=== PATIENT | female | born 1995 | race Caucasian/White ===

== ENCOUNTER 2016-10-08 09:16 | Emergency (ER) | payer MEDICAID ==
[2016-10-08 09:27] VITALS: BP 125/77; PULSE 82; TEMP 97.9; O2SAT 100
[2016-10-08 09:34] VITALS: RESP 16
--- NOTE | 2016-10-08 09:56 | ED PDOC ---
HPI: CCC, URI, Sore Throat Time Seen by Provider: 10/08/16 09:33 Chief Complaint (Nursing): ENT Problem History Per: Patient (states 2 days of sore throat, cough and nasal congestion associated with headaches. Also c/o pain right side of neck. ) History/Exam Limitations: no limitations Have you had recent travel within the past 21 days to any of the following countries: [place], [place], [place] or [place]?: No Onset/Duration Of Symptoms: Days (2) Current Symptoms Are (Timing): Still Present Location Of Pain: Throat, Headache Sick Contacts (Context): None Associated Symptoms: Chills, Sore Throat, Cough, Nasal Congestion. denies: Sinus Drainage, Myalgias, Vomiting, Diarrhea Past Medical History Reviewed: Historical Data, Nursing Documentation, Vital Signs Vital Signs: Last Vital Signs Temp 97.9 F 10/08/16 09:32 Pulse 82 10/08/16 09:32 Resp 16 10/08/16 09:32 BP 125/77 10/08/16 09:32 Pulse Ox 100 10/08/16 09:58 - Medical History PMH: Anemia Denies: HIV, Chronic Kidney Disease - Surgical History Surgical History: Cholecystectomy, (x2) - Family History Family History: States: Unknown Family Hx - Living Arrangements Living Arrangements: With Family - Social History Current smoker - smoking cessation education provided: No - Home Medications Home Medications: Ambulatory Orders Medication Instructions Recorded Ciprofloxacin 500 mg PO BID #10 ml 07/31/14 Ferrous Sulfate 325 mg PO BID #30 tab 07/31/14 Ciprofloxacin/Ciprofloxa HCl 500 mg PO BID #10 ter 04/11/15 [Ciprofloxacin] Cyclobenzaprine HCl [Flexeril] 10 mg PO BID PRN #12 tab 04/11/15 Ibuprofen [Motrin Tab] 800 mg PO Q6H PRN #20 tab 04/11/15 Fluticasone Propionate [Flonase] 4 spr IN DAILY #1 bottle 10/08/16 Guaifenesin/Pseudoephedrne HCl 1 ter PO Q12H PRN #10 ter 10/08/16 [Mucinex D 600 mg-60 mg] Naproxen [Naprosyn] 500 mg PO BID PRN #20 tablet 10/08/16 - Allergies Allergies/Adverse Reactions: Allergies Allergy/AdvReac Type Severity Reaction Status Date / Time No Known Allergies Allergy Verified 02/07/16 18:37 Review of Systems ROS Statement: Except As Marked, All Systems Reviewed And Found Negative Constitutional: Positive for: Chills. Negative for: Fever ENT: Positive for: Nose Congestion, Throat Pain. Negative for: Nose Discharge, Throat Swelling Cardiovascular: Negative for: Chest Pain Respiratory: Positive for: Cough. Negative for: Shortness of Breath, SOB with Exertion, Sputum Gastrointestinal: Negative for: Nausea, Vomiting, Abdominal Pain Genitourinary Female: Negative for: Dysuria, Vaginal Bleeding Musculoskeletal: Positive for: Neck Pain (right posterior) Physical Exam - Reviewed Nursing Documentation Reviewed: Yes Vital Signs Reviewed: Yes - Physical Exam Appears: Positive for: Well, Non-toxic, No Acute Distress Head Exam: Positive for: ATRAUMATIC, NORMAL INSPECTION, NORMOCEPHALIC Skin: Positive for: Normal Color, Warm, DRY Eye Exam: Positive for: EOMI, Normal appearance, PERRL ENT: Positive for: Normal ENT Inspection, Pharynx Is (normal), TM Is/Are (normal ), Nasal Congestion. Negative for: Pharyngeal Erythema, Tonsillar Exudate, Tonsillar Swelling Neck: Positive for: Normal, Painless ROM, Supple Cardiovascular/Chest: Positive for: Regular Rate, Rhythm Respiratory: Positive for: CNT, Normal Breath Sounds Gastrointestinal/Abdominal: Positive for: Soft Back: Positive for: Normal Inspection Extremity: Positive for: Normal ROM Neurologic/Psych: Positive for: Alert, Oriented - ECG O2 Sat by Pulse Oximetry: 100 Disposition - Clinical Impression Clinical Impression: URI (upper respiratory infection) - Patient ED Disposition Is Patient to be Admitted: No Doctor Will See Patient In The: Office Counseled Patient/Family Regarding: Diagnosis, Need For Followup, Rx Given - Disposition Referrals: Cesar Strickland MD [Family Provider] - Disposition: Routine/Home Disposition Time: 11:16 Condition: STABLE Prescriptions: Fluticasone Propionate [Flonase] 4 spr IN DAILY #1 bottle Guaifenesin/Pseudoephedrne HCl [Mucinex D 600 mg-60 mg] 1 ter PO Q12H PRN #10 ter PRN Reason: cough/congestion Naproxen [Naprosyn] 500 mg PO BID PRN #20 tablet PRN Reason: Pain, Moderate (4-7) Instructions: Upper Respiratory Infection (ED) Print Language: FRISIAN - POA Present On Arrival: None
== END 2016-10-08 11:30 | disposition home or self-care (01) ==
LOC: H.ER 09:16
DX: J06.9 Acute upper respiratory infection, unspecified (principal)